=== PATIENT | male | born 1985 | race Caucasian/White ===

== ENCOUNTER 2016-11-14 20:47 | Emergency (ER) | payer BC ==
[~2016-11-14] VITALS: Ht 180.3 cm; Wt 90.0 kg
[2016-11-14 20:53] VITALS: BP 193/106; PULSE 105; RESP 20; TEMP 98.6; O2SAT 100
[2016-11-14 21:39] VITALS: PULSE 80; O2SAT 98
--- NOTE | 2016-11-14 22:14 | PD ---
HPI . Panic attack Chief Complaint: Anxiety Time Seen by Provider: 21:58 Travel History International Travel<30 days: No Contact w/Intl Traveler<30days: No Traveled to known affect area: No History of Present Illness HPI Patient presents ambulatory with chief complaint of a panic attack. Onset was about 1.5 hours ago. He states that he was just watching TV. He describes shaking, chest pressure, breathing fast. He states that his symptoms are slowly improving. He reports no obvious cause. Symptoms are being relieved spontaneously. PFSH Past Medical History Hx Anticoagulant Therapy: No Arthritis: No Asthma: No Autoimmune Disease: Yes (Psoriasis) Blood Disorders: No Anxiety: Yes Depression: Yes Heart Rhythm Problems: No Cancer: No Cardiovascular Problems: No High Cholesterol: No Chemotherapy: No Chest Pain: No Congestive Heart Failure: No COPD: No Cerebrovascular Accident: No Diabetes: No Endocrine: No Gastrointestinal Disorders: Yes GERD: Yes Genitourinary: No Headaches: No Hiatal Hernia: No Hypertension: Yes Immune Disorder: No Kidney Stones: No Musculoskeletal: No Neurologic: No Psychiatric: No Reproductive: No Respiratory: No Integumentary: Yes (psoriasis) Migraines: No Radiation Therapy: No Renal Failure: No Seizures: No Sickle Cell Disease: No Sleep Apnea: No Thyroid Disease: No Ulcer: No Tetanus Vaccination: < 5 Years Influenza Vaccination: No Past Surgical History Abdominal Surgery: No Cardiac Surgery: No Ear Surgery: No Endocrine Surgery: No Eye Surgery: No Genitourinary Surgery: No Gynecologic Surgery: No Hysterectomy: No Oral Surgery: No Thoracic Surgery: No Social History Alcohol Use: Yes ([facility] lastnight had a couple of drinks) Tobacco Use: Yes (daily 2-3 a day) Substance Use: Yes ([facility]) Allergies-Medications (Allergen,Severity, Reaction): Coded Allergies: No Known Allergies (Unverified , 02/17/15) Reported Meds & Prescriptions Reported Meds & Active Scripts Active Active Prescriptions or Reported Medications Unobtainable Review of Systems Except as stated in HPI: all other systems reviewed are Neg Cardiovascular: Positive: Chest Pain or Discomfort Respiratory: Positive: Shortness of Breath Neurologic: Positive: Tremor Psychiatric: Positive: Anxiety Physical Exam Narrative GENERAL: Patient is awake and alert and in no acute distress. SKIN: Warm and dry. HEAD: Atraumatic. Normocephalic. EYES: Pupils equal and round. Extraocular movements are intact. ENT: No nasal bleeding or discharge. Mucous membranes pink and moist. NECK: Trachea midline. Neck is supple. CARDIOVASCULAR: Regular rate and rhythm. Heart sounds are normal. RESPIRATORY: No accessory muscle use. Lungs are clear. Chest wall is nontender. GASTROINTESTINAL: Abdomen soft, non-tender, nondistended. MUSCULOSKELETAL: No obvious deformities. No edema. NEUROLOGICAL: Awake and alert. No obvious cranial nerve deficits. Motor grossly within normal limits. Normal speech. PSYCHIATRIC: Appropriate mood and affect; insight and judgment normal. Data Data Last Documented VS Vital Signs Date Time Temp Pulse Resp B/P Pulse Ox O2 Delivery O2 Flow Rate FiO2 11/14/16 23:04 70 179/112 99 11/14/16 21:39 Room Air 11/14/16 20:53 98.6 20 Orders Lorazepam (Ativan) (11/14/16 22:15) Electrocardiogram (11/14/16 23:01) Basic Metabolic Panel (Bmp) (11/14/16 23:01) Ckmb (Isoenzyme) Profile (11/14/16 23:01) Complete Blood Count With Diff (11/14/16 23:01) Magnesium (Mg) (11/14/16 23:01) Troponin I (11/14/16 23:01) Chest, Single Ap (11/14/16 23:01) Iv Access Insert/Monitor (11/14/16 23:01) Aspirin Chew (Aspirin Chew) (11/14/16 23:15) Sodium Chloride 0.9% Flush (Ns Flush) (11/14/16 23:15) Hydrochlorothiazide (Hydrodiuril) (11/14/16 23:15) CKMB (11/14/16 23:25) CKMB% (11/14/16 23:25) Labs Laboratory Tests Test 11/14/16 23:25 White Blood Count 10.3 TH/MM3 Red Blood Count 5.28 MIL/MM3 Hemoglobin 14.7 GM/DL Hematocrit 44.7 % Mean Corpuscular Volume 84.6 FL Mean Corpuscular Hemoglobin 27.8 PG Mean Corpuscular Hemoglobin 32.9 % Concent Red Cell Distribution Width 16.7 % Platelet Count 261 TH/MM3 Mean Platelet Volume 7.8 FL Neutrophils (%) (Auto) 62.8 % Lymphocytes (%) (Auto) 26.3 % Monocytes (%) (Auto) 8.3 % Eosinophils (%) (Auto) 2.1 % Basophils (%) (Auto) 0.5 % Neutrophils # (Auto) 6.5 TH/MM3 Lymphocytes # (Auto) 2.7 TH/MM3 Monocytes # (Auto) 0.9 TH/MM3 Eosinophils # (Auto) 0.2 TH/MM3 Basophils # (Auto) 0.1 TH/MM3 CBC Comment DIFF FINAL Differential Comment Sodium Level 137 MEQ/L Potassium Level 3.6 MEQ/L Chloride Level 99 MEQ/L Carbon Dioxide Level 29.8 MEQ/L Anion Gap 8 MEQ/L Blood Urea Nitrogen 9 MG/DL Creatinine 1.10 MG/DL Estimat Glomerular Filtration 79 ML/MIN Rate Random Glucose 107 MG/DL Calcium Level 9.8 MG/DL Magnesium Level 2.1 MG/DL Total Creatine Kinase 125 U/L Creatine Kinase MB LESS THAN 0.5 NG/ML Troponin I LESS THAN 0.02 NG/ML MDM Medical Decision Making Medical Screen Exam Complete: Yes Emergency Medical Condition: Yes Differential Diagnosis Differential diagnosis of chest pain includes but is not limited to musculoskeletal pain, pulmonary embolism, acute coronary syndrome, pneumonia, pleurisy Narrative Course Patient presents stating that he is having a panic attack. I have ordered Ativan. Last Impressions Chest X-Ray 11/14/16 2301 Signed Impressions: Service Date/Time: , November 14, 2016 23:03 - CONCLUSION: 1. No acute cardiopulmonary disease. Parminder Ceballos MD CBC & BMP Diagram 11/14/16 23:25 Cardiac enzymes are negative. Diagnosis Primary Impression: Panic attack Patient Instructions: General Instructions, Panic Attack (ED) Scripts Unable to Obtain Active Prescriptions or Reported Meds Disposition: 01 DISCHARGE HOME Condition: Stable Kelly Matthews MD Nov 14, 2016 22:14
[2016-11-14] MEDS ORDERED: LORazepam 2 MG TAB PO ONE (22:15)
[2016-11-14 22:29] VITALS: PULSE 78
[2016-11-14 23:04] VITALS: BP 179/112
[2016-11-14] MEDS ORDERED: ASPIRIN 81 MG CHEW TAB PO ONE (23:15)
[2016-11-14] MEDS ORDERED: HYDROCHLOROTHIAZIDE 25 MG TAB PO ONE (23:15)
[2016-11-14] MEDS ORDERED: SODIUM CHLORIDE 0.9% FLUSH 10 ML FLUSH IVF PRN (23:15)
[2016-11-14 23:39] LABS: AUTOMATED NEUTROPHIL # 6.5 TH/MM3 (1.8-7.7); BASOPHIL # 0.1 TH/MM3 (0-0.2); BASOPHIL % 0.5 % (0.0-2.0); EOSINOPHIL # 0.2 TH/MM3 (0-0.4); EOSINOPHIL % 2.1 % (0.0-4.0); HEMATOCRIT 44.7 % (39.0-51.0); HEMO FLAGS DIFF FINAL; LYMPH % 26.3 % (9.0-44.0); LYMPHOCYTE # 2.7 TH/MM3 (1.0-4.8); MEAN CELL VOLUME 84.6 FL (80.0-100.0); MEAN CORPUSCULAR HEMOGLOBIN 27.8 PG (27.0-34.0); MEAN CORPUSCULAR HGB CONC 32.9 % (32.0-36.0); MONO % 8.3 % (0.0-8.0); NEUT % 62.8 % (16.0-70.0); PLATELET COUNT 261 TH/MM3 (150-450); RED BLOOD COUNT 5.28 MIL/MM3 (4.50-5.90); RED CELL DISTRIBUTION WIDTH 16.7 % (11.6-17.2); WHITE BLOOD COUNT 10.3 TH/MM3 (4.0-11.0)
[2016-11-14 23:57] LABS: CREATINE KINASE 125 U/L (39-308)
[2016-11-15 00:09] LABS: ANION GAP 8 MEQ/L (5-15); BICARBONATE 29.8 MEQ/L (21.0-32.0); BLOOD UREA NITROGEN 9 MG/DL (7-18); CHLORIDE 99 MEQ/L (98-107); CKMB LESS THAN 0.5 NG/ML (0.5-3.6); GLOMERULAR FILTRATION RATE 79 ML/MIN (>89); MAGNESIUM 2.1 MG/DL (1.5-2.5); POTASSIUM 3.6 MEQ/L (3.5-5.1); SODIUM (NA) 137 MEQ/L (136-145)
--- NOTE | 2016-11-15 00:25 | RADRPT ---
EXAM DATE/TIME: 11/14/2016 23:03 [facility] COMPARISON: No previous studies available for comparison. INDICATIONS : Shortness of breath. MEDICAL HISTORY : None. SURGICAL HISTORY : None. ENCOUNTER: Initial ACUITY: 1 day PAIN SCORE: 0/10 LOCATION: Bilateral chest FINDINGS: A single view of the chest demonstrates the lungs to be symmetrically aerated without evidence of mas s, infiltrate or effusion. The cardiomediastinal contours are unremarkable. Osseous structures are intact. CONCLUSION: 1. No acute cardiopulmonary disease. Parminder Ceballos MD on November 15, 2016 at 0:24 Board Certified Radiologist. This report was verified electronically.
[2016-11-15 00:39] VITALS: BP 153/107; PULSE 77; RESP 18; O2SAT 95
--- NOTE | 2016-11-15 12:22 | EKG ---
Date Performed: 11/14/2016 Time Performed: 23:43:24 PTAGE: 31 years EKG: Sinus rhythm NORMAL ECG Compared to prior tracing no significant change PREVIOUS TRACING : 02/17/2015 08.29 DOCTOR: Steve Cantu Interpretating Date/Time 11/15/2016 12:19:28
== END 2016-11-15 00:51 | disposition home or self-care (01) ==
LOC: NEPE 20:47
DX: I10 Essential (primary) hypertension (principal); F41.0 Panic disorder [episodic paroxysmal anxiety]
CPT/HCPCS: 71010; 80048; 82550; 82552; 83735; 84484; 85025; 93005; 99285